=== PATIENT | female | born 1970 | race Caucasian/White ===

== ENCOUNTER 2025-09-05 08:58 | Observation (INO) ==
[2025-09-05] MEDS: IPRATROPIUM/ALBUTEROL 3 ML NEB INH STA ×3 (09:21→13:56)
[2025-09-05] MEDS: DEXAMETHASONE 10 MG/ML VIAL IVP STA (09:31)
--- NOTE | 2025-09-05 09:33 | XRAY Report ---
PROCEDURE: XR Chest 1V INDICATIONS: SOA Asthma exacerbation TECHNIQUE: One view of the chest was acquired. COMPARISON: None. FINDINGS: Surgical changes and devices: None. Lungs and pleura: No pleural effusions or pneumothorax. No consolidation. Mediastinum: Mediastinal contours appear normal. Heart size is normal. Bones and chest wall: No suspicious bony lesions. Overlying soft tissues appear unremarkable. IMPRESSION: No acute cardiopulmonary process. Reviewed by: Jerry Blackwood MD on 09/05/2025 9:30 AM [facility] Approved by: Jerry Blackwood MD on 09/05/2025 9:30 AM [facility] Station ID: [id number]
[2025-09-05 09:46] LABS: HCT - HEMATOCRIT 41.6 % (37.0-47.0); HGB - HEMOGLOBIN 13.5 g/dL (12.0-16.0); MEAN PLATELET VOLUME 9.3 fL (7.9-10.8); NRBC ABSOLUTE COUNT (AUTO) 0.00 x10^3/uL; NUCLEATED RED BLOOD CELLS AUTO 0.0 /100WBC; PLT - PLATELET COUNT 311 10^3/uL (130-450); RED CELL DISTRIBUTION WIDTH 13.4 % (12.0-15.0)
[2025-09-05] MEDS: BUDESONIDE 0.5 MG/2 ML NEB INH STA (09:49)
--- NOTE | 2025-09-05 09:50 | ED Physician Documentation ---
PD HPI DYSPNEA Stated complaint Stated Complaint: ASTHMA/SOA Chief complaint Chief Complaint: Resp History obtained from History obtained from: Patient and EMS (Significant work of breathing with low oxygen in the mid 80s, tachypnea, single word conversational dyspnea en route) History of Present Illness Timing - onset: How many days ago (2-3) Timing - duration: Days (Onset of some increased wheezing with feeling of aches and cough 2 to 3 days ago upon returning from vacation. Significant increase in asthma symptoms this morning despite multiple nebulizers at home.) Timing - details: Gradual onset and Still present Inciting event(s): Immobilization/travel Improved by: No Inhaler/neb Worsened by: Exertion and Coughing Associated symptoms: Fever, Cough and Wheezing; No Bilateral edema Similar symptoms before: Has not had sx before (She states her asthma has never been this severe) Meds/Allgy Home Medications Ambulatory Orders Medication Instructions Recorded Confirmed albuterol sulfate 90 mcg/actuation inhalation 09/05/25 aerosol inhaler fluticasone 500 mcg-salmeterol 50 1 inh inhalation BID 09/05/25 09/05/25 mcg/dose blistr powdr for inhalation guaifenesin 1,200 mg tablet, 1,200 mg PO PRN PRN conge stion 09/05/25 09/05/25 extended release 12 hr (Mucinex) montelukast 10 mg tablet 10 mg PO DAILY 09/05/2508/26 Allergies Allergies Allergy/AdvReac Type Severity Reaction Status Date / Time Penicillins Allergy Intermediate Rash Verified 09/05/25 09:12 PFSH Active Problems All Active Problems (Updated 09/05/25 @ 11:59 by Raciel Gonzalez MD) Acute exacerbation of mild persistent extrinsic asthma (Acute) Acute dyspnea (Acute) Influenza (Acute) Medical History Medical History (Updated 09/05/25 @ 11:59 by Raciel Gonzalez MD) History of asthma Social History Social History Do you feel safe in your home environment?: Yes History of physical, verbal, emotional, or financial abuse?: No Exam Exam Vital Signs: Vital Signs x48h Temp Pulse Resp BP Pulse Ox O2 Flow Rate 09/05/25 16:05 105 H 16 112/72 93 09/05/25 15:26 105 H 16 113/75 93 09/05/25 14:19 119 H 16 131/68 H 91 L 09/05/25 13:56 100 16 09/05/25 13:31 96 15 98/56 L 90 L 09/05/25 12:00 112 H 20 119/67 90 L 09/05/25 11:21 122 H 17 119/57 L 92 09/05/25 11:13 116 H 16 2 09/05/25 11:00 125 H 22 121/80 93 2 09/05/25 10:11 132 H 22 128/81 94 2 09/05/25 09:56 130 H 122/80 94 2 09/05/25 09:49 128 H 24 2 09/05/25 09:41 134 H 130/88 93 2 09/05/25 09:26 136 H 132/84 H 94 2 09/05/25 09:22 128 H 26 H 2 09/05/25 09:16 2 09/05/25 09:11 134 H 121/81 94 2 09/05/25 09:04 37 C 124 H 30 H 141/114 H 99 10 Constitutional normal general appearance, distress noted (severe) (Tachypnea with muscle accessory use and single word conversational dyspnea. Looks distressed and wide eyed. Following commands for vp compliance.) and average body habitus HENMT oral mucous membranes normal and oropharynx normal Neck/C-Spine supple and no meningeal signs Lymph no lymphadenopathy noted Respiratory abnormal respiratory effort (shallow breathing) and (labored), auscultation abnormal (diminished breath sound) and wheezing noted (expiratory wheezes) Cardiovascular heart rate abnormal (tachycardic), regular rhythm noted, no murmur and no edema Gastrointestinal abdomen soft to palpation and nontender to palpation Psychiatry mental status grossly normal, oriented x3, thought process normal, cooperative and affect abnormality noted (anxious) Skin skin color normal Results Vitals Vitals: Vital Signs - 24 hr 09/05/25 09:04 09/05/25 09:11 09/05/25 09:16 Temperature 37 C Temperature Source Temporal Artery Scan Pulse Rate 124 H 134 H Respiratory Rate 30 H Blood Pressure 141/114 H 121/81 O2 Saturation 99 94 Oxygen Delivery Method Nasal Cannula O2 Source Oxymask Nasal cannula If not protocol: Oxygen Flow, liters/minute 10 2 2 Pain Intensity 3 2 09/05/25 09:20 09/05/25 09:22 09/05/25 09:26 Temperature Temperature Source Pulse Rate 128 H 136 H Respiratory Rate 26 H Blood Pressure 132/84 H O2 Saturation 94 Oxygen Delivery Method Nasal Cannula O2 Source Nasal cannula Nasal cannula If not protocol: Oxygen Flow, liters/minute 2 2 Pain Intensity 2 09/05/25 09:41 09/05/25 09:49 09/05/25 09:56 Temperature Temperature Source Pulse Rate 134 H 128 H 130 H Respiratory Rate 24 Blood Pressure 130/88 122/80 O2 Saturation 93 94 Oxygen Delivery Method O2 Source Nasal cannula Nasal cannula Nasal cannula If not protocol: Oxygen Flow, liters/minute 2 2 2 Pain Intensity 2 2 09/05/25 10:11 09/05/25 11:00 09/05/25 11:13 Temperature Temperature Source Pulse Rate 132 H 125 H 116 H Respiratory Rate 22 22 16 Blood Pressure 128/81 121/80 O2 Saturation 94 93 Oxygen Delivery Method O2 Source Nasal cannula Nasal cannula Nasal cannula If not protocol: Oxygen Flow, liters/minute 2 2 2 Pain Intensity 2 2 09/05/25 11:21 09/05/25 12:00 09/05/25 13:31 Temperature Temperature Source Pulse Rate 122 H 112 H 96 Respiratory Rate 17 20 15 Blood Pressure 119/57 L 119/67 98/56 L O2 Saturation 92 90 L 90 L Oxygen Delivery Method O2 Source Nasal cannula Room air Room air If not protocol: Oxygen Flow, liters/minute Pain Intensity 6 2 0 09/05/25 13:56 09/05/25 14:19 09/05/25 15:26 Temperature Temperature Source Pulse Rate 100 119 H 105 H Respiratory Rate 16 16 16 Blood Pressure 131/68 H 113/75 O2 Saturation 91 L 93 Oxygen Delivery Method O2 Source Room air Room air Room air If not protocol: Oxygen Flow, liters/minute Pain Intensity 2 2 09/05/25 16:05 Temperature Temperature Source Pulse Rate 105 H Respiratory Rate 16 Blood Pressure 112/72 O2 Saturation 93 Oxygen Delivery Method O2 Source Room air If not protocol: Oxygen Flow, liters/minute Pain Intensity 2 Oxygen O2 Source Room air Labs Labs: Laboratory Tests 09/05/25 09/05/25 09:18 09:35 WBC 14.6 H RBC 4.57 Hgb 13.5 Hct 41.6 MCV 91.0 MCH 29.5 MCHC 32.5 RDW 13.4 Plt Count 311 MPV 9.3 Neut # (Auto) 12.2 H Lymph # (Auto) 1.4 L [place] # (Auto) 0.6 Eos # (Auto) 0.2 Baso # (Auto) 0.1 Absolute Nucleated RBC 0.00 Nucleated RBC % 0.0 Sodium 138 Potassium 2.9 L Chloride 102 Carbon Dioxide 25 Anion Gap 11.0 BUN 21 H Creatinine 0.7 Estimated GFR (MDRD) 87 L Glucose 195 H Calcium 8.6 Magnesium 2.9 H Total Bilirubin 0.5 AST 18 ALT 14 Alkaline Phosphatase 63 Total Protein 7.3 Albumin 4.6 Globulin 2.7 Albumin/Globulin Ratio 1.7 Lipase 37 Nasal Adenovirus (PCR) NOT DETECTED Nasal B. parapertussis DNA (PCR) NOT DETECTED Nasal Coronavir 229E PCR NOT DETECTED Nasal Coronavir HKU1 PCR NOT DETECTED Nasal Coronavir NL63 PCR NOT DETECTED Nasal Coronavir OC43 PCR NOT DETECTED Nasal Enterovir/Rhinovir PCR NOT DETECTED Nasal Influenza A H3 PCR DETECTED A Nasal Influenza B PCR NOT DETECTED Nasal Parainfluen 1 PCR NOT DETECTED Nasal Parainfluen 2 PCR NOT DETECTED Nasal Parainfluen 3 PCR NOT DETECTED Nasal Parainfluen 4 PCR NOT DETECTED Nasal RSV (PCR) NOT DETECTED Nasal B.pertussis DNA PCR NOT DETECTED Nasal C.pneumoniae (PCR) NOT DETECTED [place] Human Metapneumo PCR NOT DETECTED Nasal M.pneumoniae (PCR) NOT DETECTED Nasal SARS-CoV-2 (PCR) NOT DETECTED Rads (name of study) chest xrY: Relevant Findings:: Final report received and EMP independent interpretation of test (no infiltrates) Interpretation: EXAM: [id number] XR/CXR1VW ([id number]) PROCEDURE: XR Chest 1V INDICATIONS: SOA Asthma exacerbation TECHNIQUE: One view of the chest was acquired. COMPARISON: None. FINDINGS: Surgical changes and devices: None. Lungs and pleura: No pleural effusions or pneumothorax. No consolidation. Mediastinum: Mediastinal contours appear normal. Heart size is normal. Bones and chest wall: No suspicious bony lesions. Overlying soft tissues appear unremarkable. IMPRESSION: No acute cardiopulmonary process. Reviewed by: Jerry Blackwood MD on 09/05/2025 9:30 AM PST PD Medical Decision Making ED course Complexity details: reviewed results (Blood count is good. Respiratory final viral panel shows influenza A. Initial potassium level was low at 2.9 but likely an effect of the multiple albuterol dosings. Can still give an oral extra dose. Chest x-ray without infiltrates), re-evaluated patient (Reevaluated after several nebulizers including DuoNeb, albuterol, budesonide. Also given dexamethasone IV. Her breathing became less labored and improved tachypnea though still remained wheezing and tachycardic. Oxygenation is between 90 and 92% on room air but still has tachypnea and tachycardia), considered differential (History of asthma and allergies with current 2 to 3 days of URI type symptoms and now with significant asthma exacerbation. Multiple nebulizers prehospital and still work of breathing. Will obtain labs and chest x-ray and respiratory panel.) and d/w patient ED course: The patient had significant work of breathing tachypnea and tachycardia on presentation. Oxygenation was low by EMS and improved to low 90s on arrival here. Subsequently did have improved work of breathing after multiple nebulizers and steroids. However even though she is not hypoxic now, she is still having tachycardia and tachypnea with mild muscle use. She is able to talk in full sentences. I feel she likely meets OBS criteria given the likelihood of staying ill with the influenza causing bronchial inflammation. No signs of pneumonia on x-ray. At this point we do not have beds available in the hospital. I did talk briefly with the hospitalist about the patient and he felt likely appropriate. We are awaiting discharges for open bed availability. Continuing nebulizers every 3 hours and repeating dose of steroids in several hours. Critical Care Critical Care Provided: Yes Time(min): 40 Comments: Patient was given multiple nebulizer treatments here. She was on diagnostic cardiac sonographer and frequent reevaluations with concern for potential need for airway support. Subsequently improved enough to appear not needing airway interventions. Still having significant work of breathing. Time Includes: Direct patient care, Reassess patient, Coordinate care and Medical consult Data interpretation: Labs and CXR Discharge Plan Discharge Patient Disposition: ED Place in Observation Condition: Stable Clinical Impression: Influenza, Acute dyspnea, Acute exacerbation of mild persistent extrinsic asthma Prescriptions: No Action fluticasone propion-salmeterol 500-50 mcg/dose blister with device 1 inh INHALATION BID Patient Comments: INHALE 1 PUFF BY MOUTH 2 TIMES DAILY. RINSE MOUTH WITH WATER AFTER USE TO REDUCE AFTERTASTE AND INCIDENCE OF CANDIDIASIS. DO NOT SWALLOW. montelukast 10 mg tablet 10 mg PO DAILY Patient Comments: TAKE 1 TABLET (10 MG) BY MOUTH AT BEDTIME. guaifenesin [Mucinex] 1,200 mg tablet extended release 12hr 1,200 mg PO PRN PRN (Reason: congestion) albuterol sulfate 90 mcg/actuation HFA aerosol inhaler INHALATION Patient Comments: Inhale 2 puffs by mouth every 6 (six) hours if needed for wheezing. Print Language: [place] Citizen Stand Alone Forms: PCP List
[2025-09-05 10:03] LABS: ALT ALANINE AMINOTRANSFERASE 14.0 IU/L (10-60); AST ASPARTATE AMINOTRANSFERASE 18.0 IU/L (10-42); BUN - BLOOD UREA NITROGEN 21.0 mg/dL (6-20); CARBON DIOXIDE - CO2 25.0 mmol/L (21-32); CREATININE 0.7 mg/dL (0.6-1.3); GFR - MDRD 87.0 (>89)
[2025-09-05 10:29] LABS: B. PARAPERTUSSIS- RESP PCR PAN NOT DETECTED; B. PERTUSSIS- RESP PCR PANEL NOT DETECTED; C. PNEUMONIAE- RESP PCR PANEL NOT DETECTED; CORONAVIRUS 229E-RESP PCR NOT DETECTED; CORONAVIRUS HKU1-RESP PCR NOT DETECTED; CORONAVIRUS NL63-RESP PCR NOT DETECTED; CORONAVIRUS OC43-RESP PCR NOT DETECTED; HUMAN METAPNEUMOVIRUS NOT DETECTED; INFLUENZA A H3- RESP PCR PANEL DETECTED; INFLUENZA B - RESP PCR PANEL NOT DETECTED; M. PNEUMONIAE- RESP PCR PANEL NOT DETECTED; PARAINFLUENZA VIRUS 1 NOT DETECTED; PARAINFLUENZA VIRUS 2 NOT DETECTED; PARAINFLUENZA VIRUS 4 NOT DETECTED; RHINOVIRUS/ENTEROVIRUS NOT DETECTED; RSV- RESP PCR PANEL NOT DETECTED; SARS-CoV-2 -RESP PCR PANEL NOT DETECTED
[2025-09-05] MEDS: POTASSIUM BICARB 25 MEQ TABLET PO STA (11:01)
[2025-09-05] MEDS: ALBUTEROL NEB 2.5 MG/3 ML INH STA ×2 (11:08→16:35)
[2025-09-05] MEDS: OSELTAMIVIR 75 MG CAPSULE PO STA (11:24)
[2025-09-05] MEDS: SODIUM CHLORIDE 0.9% 1,000 ML IV STA (16:03)
[2025-09-05] MEDS: IPRATROPIUM/ALBUTEROL 3 ML NEB INH SCH (16:35)
--- NOTE | 2025-09-05 17:03 | ED Physician Documentation ---
ED Addendum Addendum Addendum: Patient is signed out to me by Dr. Gonzalez, see his note for full H&P. Briefly this is a 55-year-old female, history of asthma who states that she has been sick for about the past 4 days. Tested positive for influenza A today. She received several rounds of nebulizer treatment as well as steroids. She is not hypoxic. She feels much better and was observed for several hours in the emergency department without any further hypoxia or worsening of symptoms. We discussed the patient going home and she wanted to try to go home but when she stood up and walk to the bathroom she became significantly tachypneic, heart rate to the 140s and increased wheezing along with dizziness and shortness of breath. Appears that she will need observation in the hospital and time for the steroids and nebulizer treatments to decrease the swelling in her lungs from the influenza. Discussed the case with the hospitalist who accepts. This document was made in part using voice recognition software. While efforts are made to proofread this document, sound alike and grammatical errors may occur. Discharge Plan Discharge Patient Disposition: ED Place in Observation Condition: Stable Clinical Impression: Influenza, Acute dyspnea Asthma exacerbation Qualifiers: Asthma severity: unspecified severity Asthma persistence: unspecified Qualified Code(s): J45.901 - Unspecified asthma with (acute) exacerbation
--- NOTE | 2025-09-05 18:14 | HISTORY & PHYSICAL EXAMINATION ---
Chief Complaint Chief Complaint Chief Complaint: SOA History of Present Illness History Obtained From History obtained from: Patient interview History of Present Illness HPI Comment/Other: 55-year-old female who presented with aches, cough, wheezing and dyspnea. 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 She reports that she is normally seen by [place] pul[facility]. She is on Advair and Singulair for maintenance, and albuterol for rescue. She reports recent travel, with extended layovers at 2 different airports. Reports her symptoms started on Thursday. She has had a significant increase in her symptoms this morning despite multiple nebulizers. She also reports fevers. In the ER, workup was significant for influenza A. Chest x-ray showed no acute process. Her WBC was 14.6, potassium 2.9. She was given IV Decadron, multiple doses of DuoNeb as well as albuterol, aggressive IV fluid resuscitation. She continued to have dyspnea, but it had improved some. She was ambulated in the ED and had significant tachycardia and hypoxia and worsening of her wheezes. Hospitalist was contacted for observation for asthma exacerbation Meds/Allgy Home Medications Ambulatory Orders Medication Instructions Recorded Confirmed albuterol sulfate 90 mcg/actuation inhalation 09/05/25 aerosol inhaler fluticasone 500 mcg-salmeterol 50 1 inh inhalation BID 09/05/25 09/05/25 mcg/dose blistr powdr for inhalation guaifenesin 1,200 mg tablet, 1,200 mg PO PRN PRN conge stion 09/05/25 09/05/25 extended release 12 hr (Mucinex) montelukast 10 mg tablet 10 mg PO DAILY 09/05/2508/26 prednisone 20 mg tablet 60 mg (3 x 20 mg) PO DAILY 5 days 09/05/25 #15 tabs Allergies Allergies Allergy/AdvReac Type Severity Reaction Status Date / Time Penicillins Allergy Intermediate Rash Verified 09/05/25 09:12 [facility] Active Problems All Active Problems (Updated 09/05/25 @ 17:03 by Alex Florence MD) Asthma exacerbation (Acute) Acute dyspnea (Acute) Influenza (Acute) Medical History Medical History (Updated 09/05/25 @ 17:03 by Alex Florence MD) History of asthma Social History Social History Do you feel safe in your home environment?: Yes History of physical, verbal, emotional, or financial abuse?: No Review of Systems Status of ROS: 10 or more systems reviewed and unremarkable except as noted in history and below Exam Exam Vital Signs: Vital Signs x48h Temp Pulse Pulse Resp BP BP Pulse Ox 09/05/25 19:48 113 H 20 09/05/25 19:38 97.9 F 120 H 20 115/74 94 09/05/25 19:00 115 H 22 118/65 91 L 09/05/25 18:00 120 H 20 141/87 H 91 L 09/05/25 17:28 135 H 16 118/72 93 09/05/25 16:38 110 H 18 09/05/25 16:05 105 H 16 112/72 93 09/05/25 15:26 105 H 16 113/75 93 09/05/25 14:19 119 H 16 131/68 H 91 L 09/05/25 13:56 100 16 09/05/25 13:31 96 15 98/56 L 90 L Constitutional normal general appearance and no apparent distress HENMT normocephalic and head/scalp atraumatic Eyes PERRL Neck/C-Spine visual inspection normal Chest inspection of chest normal and palpation of chest normal Respiratory breath sounds equal bilaterally Trace wheezes Cardiovascular normal heart rate noted and regular rhythm noted Gastrointestinal abdomen normal to inspection Extremities normal to inspection Neurology GCS 15 Psychiatry oriented x3 Skin skin color normal Conclusion/Plan Problem List (1) Asthma exacerbation: Plan: Acute exacerbation of asthma likely caused by influenza infection Received several doses of nebulized bronchodilators without effect Received IV Decadron in the ED Continue prednisone 40 mg daily DuoNeb RT 4 times daily as needed Qualifiers: Asthma persistence: unspecified Asthma severity: unspecified severity Qualified Code(s): J45.901 - Unspecified asthma with (acute) exacerbation (2) Influenza: Plan: Onset of symptoms 2 to 3 days ago Outside of the window of typical use of Tamiflu, however I am admitting her for asthma exacerbation so we will continue with Tamiflu anyway Droplet precautions Plan Placed in observation Full code Her is her surrogate decision maker Lab Results Lab results reviewed: Yes 09/05/25 09:35 09/05/25 09:35 Core Measures DVT/VTE - Prophylaxis VTE/DVT Prophylaxis med ordered at admit?: Yes
[2025-09-05] MEDS: LACTATED RINGERS 1,000 ML IV STA (18:22)
[2025-09-05] MEDS: methylPREDNISolone SUCCINATE 40 MG/ML VIAL IVP SCH (18:46)
[2025-09-05] MEDS ORDERED: ONDANSETRON ODT 4 MG TABLET TL PRN (19:23)
[2025-09-05] MEDS ORDERED: SODIUM CHLORIDE FLUSH 0.9% 10 ML SYRINGE IVP PRN (19:23)
[2025-09-05] MEDS ORDERED: ONDANSETRON 4 MG/2 ML VIAL IVP PRN (19:23)
[2025-09-05] MEDS: OSELTAMIVIR 75 MG CAPSULE PO SCH (20:23)
[2025-09-05] MEDS: ACETAMINOPHEN 325 MG TABLET PO PRN (20:26)
[2025-09-05] MEDS: SODIUM CHLORIDE FLUSH 0.9% 10 ML SYRINGE IVP SCH (23:56)
[2025-09-06 05:06] LABS: HCT - HEMATOCRIT 36.7 % (37.0-47.0); HGB - HEMOGLOBIN 11.8 g/dL (12.0-16.0); MEAN PLATELET VOLUME 9.7 fL (7.9-10.8); NRBC ABSOLUTE COUNT (AUTO) 0.00 x10^3/uL; NUCLEATED RED BLOOD CELLS AUTO 0.0 /100WBC; PLT - PLATELET COUNT 300 10^3/uL (130-450); RED CELL DISTRIBUTION WIDTH 14.1 % (12.0-15.0)
[2025-09-06 05:19] LABS: BUN - BLOOD UREA NITROGEN 13.0 mg/dL (6-20); CARBON DIOXIDE - CO2 21.0 mmol/L (21-32); CREATININE 0.7 mg/dL (0.6-1.3); GFR - MDRD 87.0 (>89)
[2025-09-06] MEDS: ENOXAPARIN 40 MG/0.4 ML SYRINGE SUBQ SCH (08:39)
--- NOTE | 2025-09-06 14:50 | PHARMACY PROGRESS NOTE ---
Best Possible Medication History Admit Date and Time: 09/05/25 1804 Home Medications Medication Instructions Recorded Confirmed Type albuterol sulfate 90 mcg/actuation 2 puff inhalation Q 6H PRN 09/05/25 09/06/25 History aerosol inhaler shortness of breath or wheez ing fluticasone 500 mcg-salmeterol 50 1 inh inhalation BID 09/05/25 09/05/25 History mcg/dose blistr powdr for inhalation montelukast 10 mg tablet 10 mg PO QPM 09/05/25 History prednisone 20 mg tablet 60 mg (3 x 20 mg) PO DAILY 5 days 09/05/25 Rx #15 tabs albuterol sulfate 2.5 mg/3 mL 2.5 mg inhalation QAM CA N 09/06/25 09/06/25 History (0.083 %) solution for nebulization shortness of breat h or wheezing multivitamin (Daily Multi-Vitamin 1 tab PO DAILY 09/0609/06/25 History tablet) Processed by: Pharmacy Medications reviewed in ED?: Yes Medication History completed: Yes Patient Interview: Completed Secondary Source(s): Insurance records [facility] Statement: As the person ultimately responsible for medication therapy, providers are able to order a medication from an existing home medication list in [facility] via the "Reconcile Routine" prior to Confirmation of that medication by customer support representative. Such practice is discouraged except when the physician, in their clinical judgment, deems that a medical need exists for a medication without regard to previous use.
--- NOTE | 2025-09-06 15:27 | Discharge Summary ---
Discharge Summary Admit Date: 09/05/25 Discharge Date: 09/06/25 Discharging Provider: Jerri Cruz PA-C Primary Care Provider: KEYLA Anthony Code Status: Attempt Resuscitation DIAGNOSES Discharge Diagnoses with Status of Each Condition: Acute hypoxic respiratory failure secondary to asthma exacerbation, resolved. Asthma exacerbation, treated and improving. Influenza A infection, treated. HPI History of Present Illness: 55-year-old female who presented with aches, cough, wheezing and dyspnea. 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 She reports that she is normally seen by [facility]. She is on Advair and Singulair for maintenance, and albuterol for rescue. She reports recent travel, with extended layovers at 2 different airports. Reports her symptoms started on Thursday. She has had a significant increase in her symptoms this morning despite multiple nebulizers. She also reports fevers. In the ER, workup was significant for influenza A. Chest x-ray showed no acute process. Her WBC was 14.6, potassium 2.9. She was given IV Decadron, multiple doses of DuoNeb as well as albuterol, aggressive IV fluid resuscitation. She continued to have dyspnea, but it had improved some. She was ambulated in the ED and had significant tachycardia and hypoxia and worsening of her wheezes. Hospitalist was contacted for observation for asthma exacerbation HOSPITAL COURSE Hospital Course: Presented with dyspnea cough and general malaise. Respiratory panel positive for influenza A infection. She normally gets flu shots but had not gotten her flu shot yet this year. She was treated with steroids, will complete a 5-day course. In addition to this will continue her steroid/LABA medication and Singulair at home. She also has adequate supply of albuterol inhaler and nebulizer treatments at home. She was prescribed Tamiflu she will complete a 5-day course of this. She was also counseled to receive a flu shot when she is feeling better. Recommended follow-up with her PCP Adrian Ramírez in the near future. She has a new patient appointment on October 10, I would recommend that she be seen sooner than this. Additionally she sees [facility], Dr. Won Shields would recommend follow-up with him as well. ALLERGIES Allergies Allergy/AdvReac Type Severity Reaction Status Date / Time Penicillins Allergy Intermediate Rash Verified 09/05/25 09:12 MEDICATIONS Ambulatory Orders Medication Instructions Recorded Confirmed albuterol sulfate 90 mcg/actuation 2 puff inhalation Q 6H PRN 09/05/25 09/06/25 aerosol inhaler shortness of breath or wheez ing fluticasone 500 mcg-salmeterol 50 1 inh inhalation BID 09/05/25 09/05/25 mcg/dose blistr powdr for inhalation montelukast 10 mg tablet 10 mg PO QPM 09/05/25 prednisone 20 mg tablet 60 mg (3 x 20 mg) PO DAILY 5 days 09/05/25 #15 tabs albuterol sulfate 2.5 mg/3 mL 2.5 mg inhalation QAM AL N 09/06/25 09/06/25 (0.083 %) solution for nebulization shortness of breat h or wheezing multivitamin (Daily Multi-Vitamin 1 tab PO DAILY 09/0609/06/25 tablet) oseltamivir 75 mg capsule 75 mg PO BID #8 caps 5 PHYSICAL EXAM AT DISCHARGE Vital Signs: Vital Signs x48h Temp Pulse Pulse Resp BP Pulse Ox 09/06/25 15:50 36.6 C 105 H 18 123/77 93 09/06/25 13:48 92 20 09/06/25 13:45 112 H General Appearance: positive No acute distress and Alert Eyes Bilateral: positive Normal inspection ENT: positive ENT inspection nml Respiratory: positive No respiratory distress and Breath sounds nml Cardiovascular: positive Regular rate & rhythm LABS 09/06/25 04:18 09/06/25 04:18 FOLLOW UP Follow Up: PCP 7 to 10 days Pulmonology 1 month TIME SPENT Time Spent in Discharge (Minutes): 45 Discharge Plan Discharge Patient Disposition: Home, Self Care Condition: Stable Prescriptions: New prednisone 20 mg tablet 60 mg PO DAILY 5 Days Qty: 15 0RF oseltamivir 75 mg Capsule 75 mg PO BID Qty: 8 0RF Continued fluticasone propion-salmeterol 500-50 mcg/dose blister with device 1 inh INHALATION BID Patient Comments: INHALE 1 PUFF BY MOUTH 2 TIMES DAILY. RINSE MOUTH WITH WATER AFTER USE TO REDUCE AFTERTASTE AND INCIDENCE OF CANDIDIASIS. DO NOT SWALLOW. montelukast 10 mg tablet 10 mg PO QPM Patient Comments: TAKE 1 TABLET (10 MG) BY MOUTH AT BEDTIME. albuterol sulfate 90 mcg/actuation HFA aerosol inhaler 2 puff INHALATION Q6H PRN (Reason: shortness of breath or wheezing) Patient Comments: Inhale 2 puffs by mouth every 6 (six) hours if needed for wheezing. albuterol sulfate 2.5 mg /3 mL (0.083 %) solution for nebulization 2.5 mg inhalation QAM PRN (Reason: shortness of breath or wheezing) Patient Comments: INHALE 1 vial via NEBULIZATION EVERY MORNING multivitamin [Daily Multi-Vitamin] Tablet 1 tab PO DAILY Diet: Regular Interventions: Belongings Inventory Last Done: 09/05/25 19:30 Discharge Last Done: 09/06/25 16:00 Discharge Checklist - Nursing Last Done: 09/06/25 16:00 Discharge Vital Signs (30 Minutes) Last Done: 09/06/25 15:50 Health Concerns: You are being discharged after treatment for an asthma flare-up caused by the flu. Please follow these instructions carefully to help you recover and prevent future problems. * Medications: * Continue all of your medications as prescribed. * Use your quick-relief inhaler (short-acting beta agonist, RAJIV) only when needed for symptoms, not on a regular schedule. Record how often you use it each day; it should decrease over time as you recover. * If you were prescribed oral steroids (like prednisone), finish the full course as directed. The meds that are sent in are more than what you need. I want you to take 40mg every morning for 3 more mornings (, Thursday and Thursday). * If you use a combination inhaler (ICS-formoterol), resume arfewsqqeov-anq-evakyeot therapy ([facility]) as instructed. * Tamiflu is a new medication, for EIGHT doses only (fine to start tomorrow AM, no need to [facility] to pick it up tonight). This an antiviral medication to help you get over your influenza infection . * Inhaler Technique: * Review and practice your inhaler technique to make sure you are using it correctly. Ask your healthcare provider if you have any questions. * Asthma Action Plan: * Avoid triggers that worsen your asthma, including future respiratory infections when possible. * Warning Signs: * Call your doctor or seek emergency care if you have: * Trouble speaking or walking due to shortness of breath * No improvement after using your quick-relief inhaler * Blue lips or fingernails * Severe chest tightness or wheezing * Follow-Up: * Schedule a follow-up appointment within 1-3 days, and another within 1-2 months, depending on your recovery and risk factors. Best to seek care with your primary care sooner, then 1-2 months with pulmonology, Dr Won García. Dr García is not in my computer, so I am unable to electronically send him copies of my notes. If you are able, send his office a "my chart" message and ask them to request a copy of my summary. * At your follow-up, your provider will check your symptoms, inhaler technique, and adjust your medications if needed. * General Recovery: * Rest, stay hydrated, and monitor your symptoms closely. * If you have questions or concerns, contact your healthcare provider or use the emergency contact information in your action plan. You are being discharged after treatment for influenza. Please follow these instructions to help you recover and prevent spreading the infection. * Rest and Hydration: Get plenty of rest and drink fluids like water, juice, or soup to stay hydrated. * Medications: If you were prescribed an antiviral medication (such as oseltamivir/Tamiflu, zanamivir, baloxavir, or peramivir), take it exactly as directed and finish the full course, even if you start to feel better. These medicines work best when started within 48 hours of symptoms, but may still help if started later, especially for those at higher risk of complications. * Fever and Pain Control: You may use acetaminophen (Tylenol) or ibuprofen (Advil, Motrin) for fever, headache, or body aches, unless you have been told not to for other health reasons.[3] * Preventing Spread: Stay home until your fever is gone for at least 24 hours (without using fever- reducing medicine). Wash your hands often, cover your mouth and nose when coughing or sneezing, and avoid close contact with others, especially those at higher risk (young children, elderly, people, or those with chronic illnesses). * Monitor for Complications: Call your healthcare provider or seek medical attention if you experience: * Difficulty breathing or shortness of breath * Chest pain or pressure * Severe weakness or confusion * Persistent high fever * Symptoms that get worse after initially improving * Follow-Up: Schedule a follow-up appointment if recommended, especially if you have chronic health conditions or your symptoms do not improve within a week. * Vaccination: Annual influenza vaccination is recommended for everyone 6 months and older to help prevent future infections. Once you are fully recovered, I recommend that you get vaccinated. Most people recover from influenza within a week, but some may take longer. If you have any questions or concerns, contact your healthcare provider. Print Language: Croatian Patient Instructions: Shots Flu Follow-up Care: Vivian Ramírez ARNP [Primary Care Provider, Family Practice] - Within 3 Days Referral Note: influenza A, asthma exacerbation Vitals documented within 30 minutes of discharge?: Yes
[2025-09-06 16:10] VITALS: BP 123/77; TEMP 97.9; O2SAT 93
== END 2025-09-06 16:00 | disposition home or self-care (01) ==
LOC: ED 08:58 → ICU 08:58 → MS3 18:40
PROVIDERS: ADMIT Nurse Practitioner Acute Care; ATTEND Nurse Practitioner Acute Care
DX: Z57.5 Occupational exposure to toxic agents in other industries; R00.0 Tachycardia, unspecified; J10.1 Influenza due to other identified influenza virus with other respiratory manifestations; J45.31 Mild persistent asthma with (acute) exacerbation; J96.01 Acute respiratory failure with hypoxia